=== PATIENT | male | born 1980 | race Caucasian/White ===

== ENCOUNTER 2017-06-06 14:51 | Emergency (ER) | payer OTHER ==
[2017-06-06] MEDS ORDERED: Fentanyl 100 MCG/2 ML VIAL ONE (15:16)
== END 2017-06-06 16:06 | disposition short-term general hospital (02) ==
LOC: NAV ERS 14:51
DX: N48.30 Priapism, unspecified (principal); F39 Unspecified mood [affective] disorder; Z79.1 Long term (current) use of non-steroidal anti-inflammatories (NSAID); Z79.899 Other long term (current) drug therapy
CPT/HCPCS: 96374; J3010